=== PATIENT | female | born 1980 | race Caucasian/White ===

== ENCOUNTER 2019-01-10 22:13 | Emergency (ER) | payer MEDICAID ==
[~2019-01-10] VITALS: Ht 152.4 cm; Wt 71.7 kg
[2019-01-10 22:23] VITALS: BP 150/80
--- NOTE | 2019-01-10 22:26 | NUR ---
TO LOBBY A/W BED AMBULATORY
--- NOTE | 2019-01-10 22:44 | NUR ---
38 Y/O FEMALE BIB SELF PRESENTS TO ED WITH C/O BRUSIE AND PAIN TO RIGHT BUTTOCK X1 DAY. BRUISE NOTED. NO OPEN AREAS. NON-RADIATING PAIN. VSS. 6/10 PAIN. CMS INTACT BILAT LOWER EXTREMITIES. ER MD AWARE. CONTINUE TO MONITOR.
--- NOTE | 2019-01-10 22:44 | NUR ---
PT TAKEN TO BED 9
--- NOTE | 2019-01-10 22:45 | NUR ---
PT AMBULATED TO BED 09
[2019-01-10] MEDS ORDERED: IBUPROFEN 800 MG TAB PO ONE (22:55)
[2019-01-10 23:05] VITALS: BP 143/78
--- NOTE | 2019-01-10 23:05 | NUR ---
DISCHARGE PAPERS GIVEN TO PT. RX OF NAPROXEN GIVEN. SIDE EFFECTS EXPLAINED. INSTRUTED TO F/U WITH PCP AND WHEN TO RETURN TO ER. PT VERBALLIZED UNDERSTANDING OF DC INSTERUCTIONS. ALL QUESTIONS ANSWERED.
== END 2019-01-10 23:05 | disposition home or self-care (01) ==
LOC: MED 22:13
DX: S30.0XXA Contusion of lower back and pelvis, initial encounter (principal); X58.XXXA Exposure to other specified factors, initial encounter; Y93.89 Activity, other specified; Y92.89 Other specified places as the place of occurrence of the external cause; Y99.8 Other external cause status
CPT/HCPCS: 99282

== ENCOUNTER 2019-06-26 21:14 | Emergency (ER) | payer MEDICAID ==
[~2019-06-26] VITALS: Ht 152.4 cm; Wt 77.1 kg
[2019-06-26 21:28] VITALS: BP 144/90
--- NOTE | 2019-06-26 21:35 | NUR ---
TO BED # 01 AMBULATORY
--- NOTE | 2019-06-26 21:56 | NUR ---
39 Y/O MALE C/O FULL BODY ITCHING WITH RASH ON ALL 4 EXTREMITIES X 3 MONTHS. MOTHER STATES SHE HAS BEEN AROUND HER SON WHO WAS DIAGNOSED WITH SCABIES. DENIES PAIN OR FEVER. RR EVEN AND UNLABORED. PT SITTING IN CHAIR CALM AND PLEASANT. VSS MEDHX: DENIES ALLERGIES: NKA
--- NOTE | 2019-06-26 22:20 | NUR ---
DR MARTINEZ AT BEDSIDE EXAMINING PT
[2019-06-26 23:01] VITALS: BP 144/90
--- NOTE | 2019-06-26 23:01 | NUR ---
Patient discharged with v/s stable. Written and verbal after care instructions given and explained. Patient alert, oriented and verbalized understanding of instructions. Ambulatory with steady gait. All questions addressed prior to discharge. ID band removed. Patient advised to follow up with PMD. Rx of PERMETHRIN given. Patient educated on indication of medication including possible reaction and side effects. Opportunity to ask questions provided and answered.
== END 2019-06-26 23:01 | disposition home or self-care (01) ==
LOC: MED 21:14
DX: B86 Scabies (principal)
CPT/HCPCS: 99282

== ENCOUNTER 2022-01-02 04:42 | Emergency (ER) | payer MEDICAID ==
[~2022-01-02] VITALS: Ht 152.4 cm; Wt 80.7 kg
[2022-01-02 04:48] VITALS: BP 134/77
[2022-01-02] MEDS ORDERED: KETOROLAC 60 MG/2 ML VIAL IM ONE (04:55)
--- NOTE | 2022-01-02 04:55 | NUR ---
TO BED 1 FOLLOWING TRIAGE
--- NOTE | 2022-01-02 04:57 | NUR ---
PT TAKEN TO BED 1
[2022-01-02] MEDS ORDERED: KETOROLAC 30 MG/ML VIAL ONE (05:00)
--- NOTE | 2022-01-02 05:06 | NUR ---
41 YO F BIBS W C/O FEVER, COUGH AND HEADACHE X 1 DAY. TOOK A COVID TEST AT HOME, WAS +. PT TOOK TYLENOL AT HOME. PMH: DENIES MEDS: DENIES
--- NOTE | 2022-01-02 05:19 | NUR ---
DR TOSCANO EXAMINING PT
[2022-01-02] MEDS ORDERED: NIRM1TAB PO (05:36)
[2022-01-02] MEDS ORDERED: IBUP-2213 PO (05:36)
[2022-01-02] MEDS ORDERED: PRED20TA5 PO (05:36)
[2022-01-02 05:49] VITALS: BP 135/72
--- NOTE | 2022-01-02 05:49 | NUR ---
Patient discharged with v/s stable. Written and verbal after care instructions given and explained. Patient alert, oriented and verbalized understanding of instructions. Ambulatory with steady gait. All questions addressed prior to discharge. ID band removed. Patient advised to follow up with PMD. Rx of IBUPROFEN, PREDNISONE & PAXLOVID given. Patient educated on indication of medication including possible reaction and side effects. Opportunity to ask questions provided and answered.
== END 2022-01-02 05:50 | disposition home or self-care (01) ==
LOC: MED 04:42
DX: U07.1 COVID-19 (principal); R11.2 Nausea with vomiting, unspecified; I10 Essential (primary) hypertension; Z98.890 Other specified postprocedural states
CPT/HCPCS: 96372; 99283; J1885